=== PATIENT | male | born 1990 | race African-American/Black ===

== ENCOUNTER 2018-12-15 15:26 | Emergency (ER) | payer BC ==
--- NOTE | 2018-12-15 15:35 | ER Report ---
History and Physical Time Seen By MD: 15:35 HPI/ROS CHIEF COMPLAINT: Sore throat HISTORY OF PRESENT ILLNESS: 28-year-old male patient presents to emergency room with complaint of sore throat. Patient states that he has been having sore throat for the last 3 days. He denies having any fevers, but he does state that he will get warm and chilled. Patient states he has taken some ibuprofen for this, one day ago. He states that he is eating and drinking, but states that he does have a difficult time that due to the pain. He denies any nausea, vomiting or diarrhea. Patient states he has had a very mild headache. Patient is concerned that he may have strep throat. 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 Reviewed Nurses Notes: Yes Constitutional Vital Sign - Last 24 Hours 12/15/18 12/15/18 15:30 16:41 Temp 99.5 Pulse 90 85 Resp 16 14 B/P (MAP) 142/90 138/88 (105) Pulse Ox 90 93 O2 Delivery Room Air Room Air Physical Exam General appearance: Alert no distress. Respiratory: Chest is non tender, lungs are clear to auscultation. Cardiac: Regular rate and rhythm. Abdomen: Abdomen is soft nontender, bowel sounds are active in all 4 quadrants. ENT: Patient has bilateral tonsillar exudate, tonsillar hypertrophy and erythema. DIFFERENTIAL DIAGNOSIS: After history and physical exam differential diagnosis was considered for strep, mono, viral pharyngitis Medical Decision Making Data Points Laboratory Hematology Test 12/15/18 15:35 Group A Streptococcus (PCR) Negative (NEGATIVE) Chemistry Test 12/15/18 15:35 Group A Streptococcus (PCR) Negative (NEGATIVE) ED Course/Re-evaluation ED Course Patient is admitted and examined, history and physical were obtained. Differential diagnoses were considered. On examination lungs are clear, heart is regular, abdomen is soft and nontender. A strep screen was done which was negative. I discussed the findings with the patient. We will go ahead and treat him with antibiotics, if there's no improvement in the next 4 days he's returned to the emergency room or follow-up with his primary care provider for a Monospot. We'll go ahead and treat him with thoracic mouthwash to help with throat pain. Patient verbalized understanding and agreement with plan. Decision to Disposition Date: December 15, 2018 Decision to Disposition Time: 16:33 Depart Departure Latest Vital Signs Vital Signs Date Time Temp Pulse Resp B/P (MAP) Pulse Ox O2 Delivery O2 Flow Rate FiO2 12/15/18 16:41 85 14 138/88 (105) 93 Room Air 12/15/18 15:30 99.5 Impression: Primary Impression: Pharyngitis Condition: Improved Disposition: HOME OR SELF-CARE New Scripts Cephalexin 500 Mg Tab (KEFLEX 500 MG TAB) 500 Mg Tablet 500 MG PO Q6H, #28 TAB Prov: HENRRY DUQUE 12/15/18 Patient Instructions: Pharyngitis (ED) Additional Instructions: Increase fluid intake. Get plenty of rest. Take medication as prescribed. Follow up in 4 days if there is no improvement. We will call if the culture grows anything that we have to change treatment for. Return to the ER if condition worsens. Problem Qualifiers Primary Impression: Pharyngitis Pharyngitis/tonsillitis etiology: unspecified etiology Qualified Codes: J02.9 - Acute pharyngitis, unspecified HENRRY DUQUE December 15, 2018 15:35
[2018-12-15] MEDS ORDERED: CEPH500T7 PO (16:34)
[2018-12-15 16:41] VITALS: BP 138/88
== END 2018-12-15 16:42 | disposition home or self-care (01) ==
LOC: ER 15:40
DX: J02.9 Acute pharyngitis, unspecified (principal)
CPT/HCPCS: 87653; 99282

== ENCOUNTER 2018-12-15 18:12 | Emergency (ER) | payer BC ==
[2018-12-15] MEDS ORDERED: NS(*) 0.9% 1000 ML BAG 1,000 ML IV ONE ×2 (18:21→18:55)
[2018-12-15] MEDS ORDERED: ACETAMINOPHEN 325 MG TAB PO ONE (18:25)
[2018-12-15] MEDS ORDERED: ONDANSETRON 4 MG/2 ML VIAL IVP ONE (18:25)
--- NOTE | 2018-12-15 18:25 | ER Report ---
History and Physical Time Seen By MD: 18:23 Hx. of Stated Complaint: PT "UNCONSCIOUS AT [facility]". RECENTLY SEEN IN ED. PT A&O X4 HPI/ROS CHIEF COMPLAINT: Altered mental status, fever HISTORY OF PRESENT ILLNESS: 28-year-old male brought in by EMS from [facility] where he collapsed on as bench complaining of feeling hot and weak. The patient was seen in the ER several hours ago with fever and sore throat for several days . A rapid strep was performed which was negative, but patient was treated with antibiotics. She notes headache, neck pain, body aches, back pain. Patient states this feels like when he had mono when he was younger. REVIEW OF SYSTEMS: Respiratory: No cough, no dyspnea. Cardiovascular: No chest pain, no palpitations. Gastrointestinal: No vomiting, no abdominal pain. Musculoskeletal: No back pain. 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 12/15/18 Reviewed Nurses Notes: Yes Old Medical Records Reviewed: Yes Constitutional Vital Sign - Last 24 Hours 12/15/18 12/15/18 12/15/18 12/15/18 18:12 18:15 18:30 18:45 Temp 99.9 Pulse 72 75 75 78 Resp 15 16 26 16 B/P (MAP) 143/94 132/81 (98) Pulse Ox 92 93 86 93 O2 Delivery Room Air 12/15/18 12/15/18 12/15/18 12/15/18 18:50 19:05 19:20 19:30 Pulse 77 89 86 Resp 9 19 16 B/P (MAP) 146/84 (104) Pulse Ox 92 90 93 Physical Exam Vital signs stable, low-grade fever 99.5, pulse ox normal General Appearance: The patient is alert, has no immediate need for airway protection and no current signs of toxicity. Patient appears very fatigued, lethargic and tired. He is very slow to respond with whispered speech. He seems to be in distress HEENT: Pupils equal and round no injection. No injection, no mattering, TMs normal, oropharynx with moderate erythema, no exudate Respiratory: Chest is non tender, lungs are clear to auscultation. No wheezing or rails Cardiac: regular rate and rhythm, no murmur Gastrointestinal: Abdomen is soft and non tender, no masses, bowel sounds normal. Musculoskeletal: Neck: Neck is supple and non tender. No meningismus, no lymphadenopathy Extremities have full range of motion and are non tender. Skin: No rashes or lesions. DIFFERENTIAL DIAGNOSIS: After history and physical exam differential diagnosis was considered for adult fever including but not limited to viral syndromes including influenza, urinary tract infection, pneumonia and sepsis. Additionall y,altered mental status including but not limited to hypoglycemia, infectious process, electrolyte abnormality, head injury and intoxicants. Medical Decision Making Data Points Result Diagram: 12/15/18 1810 12/15/18 181 Laboratory Hematology Test 12/15/18 18:10 12/15/18 18:25 12/15/18 19:10 Red Blood Count 5.18 M/uL (4.00-5.60) Mean Corpuscular Volume 84.5 fL (80.0-96.0) Mean Corpuscular Hemoglobin 29.4 pg (26.0-33.0) Mean Corpuscular Hemoglobin Concent 34.8 g/dL (32.0-36.0) Red Cell Distribution Width 13.5 % (11.5-14.5) Mean Platelet Volume 8.1 fL (7.2-11.1) Neutrophils (%) (Auto) 82.8 % (39.4-72.5) Lymphocytes (%) (Auto) 8.0 % (17.6-49.6) Monocytes (%) (Auto) 8.6 % (4.1-12.4) Eosinophils (%) (Auto) 0.3 % (0.4-6.7) Basophils (%) (Auto) 0.3 % (0.3-1.4) Nucleated RBC Relative Count (auto) 0.0 /100WBC Neutrophils # (Auto) 8.7 K/uL (2.0-7.4) Lymphocytes # (Auto) 0.8 K/uL (1.3-3.6) Monocytes # (Auto) 0.9 K/uL (0.3-1.0) Eosinophils # (Auto) 0.0 K/uL (0.0-0.5) Basophils # (Auto) 0.0 K/uL (0.0-0.1) Nucleated RBC Absolute Count (auto) 0.00 K/uL Erythrocyte Sedimentation Rate 34 mm/HOUR (0-15) Sodium Level 138 mmol/L (137-145) Potassium Level 3.3 mmol/L (3.5-5.0) Chloride Level 105 mmol/L (98-107) Carbon Dioxide Level 25 mmol/L (22-30) Blood Urea Nitrogen 11 mg/dl (9-21) Creatinine 1.00 mg/dl (0.66-1.25) Glomerular Filtration Rate Calc > 60.0 Random Glucose 103 mg/dl (75-110) Calcium Level 9.2 mg/dl (8.4-10.2) Total Bilirubin 0.9 mg/dl (0.2-1.3) Aspartate Amino Transf (AST/SGOT) 29 U/L (0-35) Alanine Aminotransferase (ALT/SGPT) 22 U/L (0-56) Alkaline Phosphatase 82 U/L (0-126) C-Reactive Protein 3.8 mg/dl (<1.0) Total Protein 7.8 g/dl (6.3-8.2) Albumin 4.0 g/dl (3.5-5.0) Monoscreen Negative (NEGATIVE) Influenza Virus Type A (PCR) Negative (NEGATIVE) Influenza Virus Type B (PCR) Negative (NEGATIVE) Lactate 1.1 mmol/L (0.7-2.1) Urine Color Yellow Urine Clarity Clear Urine pH 5.0 pH (4.8-9.5) Urine Specific [place] 1.032 Urine Protein Negative mg/dL (NEGATIVE) Urine Glucose (UA) Negative mg/dL (NEGATIVE) Urine Ketones 20 mg/dL (NEGATIVE) Urine Blood Negative (NEGATIVE) Urine Nitrite Negative (NEGATIVE) Urine Bilirubin Negative (NEGATIVE) Urine Urobilinogen 4.0 mg/dL (0.2-1.9) Urine Leukocyte Esterase Negative (NEGATIVE) Urine RBC 1 /HPF (0-2/HPF) Urine WBC 2 /HPF (0-5/HPF) Urine Squamous Epithelial Cells None /LPF (</=FEW) Urine Bacteria Negative /HPF (NONE-FEW) Urine Mucus Few /HPF (NONE-FEW) Urine Opiates Screen Negative Urine Barbiturates Screen Negative Ur Tricyclic Antidepressants Screen Negative Urine Phencyclidine Screen Negative Urine Amphetamines Screen Negative Urine Benzodiazepines Screen Negative Urine Cocaine Screen Negative Urine Cannabinoids Screen Positive Chemistry Test 12/15/18 18:10 12/15/18 18:25 12/15/18 19:10 White Blood Count 10.5 k/uL (4.5-11.0) Red Blood Count 5.18 M/uL (4.00-5.60) Hemoglobin 15.2 g/dL (14.0-18.0) Hematocrit 43.8 % (42.0-52.0) Mean Corpuscular Volume 84.5 fL (80.0-96.0) Mean Corpuscular Hemoglobin 29.4 pg (26.0-33.0) Mean Corpuscular Hemoglobin Concent 34.8 g/dL (32.0-36.0) Red Cell Distribution Width 13.5 % (11.5-14.5) Platelet Count 166 K/uL (150-450) Mean Platelet Volume 8.1 fL (7.2-11.1) Neutrophils (%) (Auto) 82.8 % (39.4-72.5) Lymphocytes (%) (Auto) 8.0 % (17.6-49.6) Monocytes (%) (Auto) 8.6 % (4.1-12.4) Eosinophils (%) (Auto) 0.3 % (0.4-6.7) Basophils (%) (Auto) 0.3 % (0.3-1.4) Nucleated RBC Relative Count (auto) 0.0 /100WBC Neutrophils # (Auto) 8.7 K/uL (2.0-7.4) Lymphocytes # (Auto) 0.8 K/uL (1.3-3.6) Monocytes # (Auto) 0.9 K/uL (0.3-1.0) Eosinophils # (Auto) 0.0 K/uL (0.0-0.5) Basophils # (Auto) 0.0 K/uL (0.0-0.1) Nucleated RBC Absolute Count (auto) 0.00 K/uL Erythrocyte Sedimentation Rate 34 mm/HOUR (0-15) Glomerular Filtration Rate Calc > 60.0 Calcium Level 9.2 mg/dl (8.4-10.2) Total Bilirubin 0.9 mg/dl (0.2-1.3) Aspartate Amino Transf (AST/SGOT) 29 U/L (0-35) Alanine Aminotransferase (ALT/SGPT) 22 U/L (0-56) Alkaline Phosphatase 82 U/L (0-126) C-Reactive Protein 3.8 mg/dl (<1.0) Total Protein 7.8 g/dl (6.3-8.2) Albumin 4.0 g/dl (3.5-5.0) Monoscreen Negative (NEGATIVE) Influenza Virus Type A (PCR) Negative (NEGATIVE) Influenza Virus Type B (PCR) Negative (NEGATIVE) Lactate 1.1 mmol/L (0.7-2.1) Urine Color Yellow Urine Clarity Clear Urine pH 5.0 pH (4.8-9.5) Urine Specific [place] 1.032 Urine Protein Negative mg/dL (NEGATIVE) Urine Glucose (UA) Negative mg/dL (NEGATIVE) Urine Ketones 20 mg/dL (NEGATIVE) Urine Blood Negative (NEGATIVE) Urine Nitrite Negative (NEGATIVE) Urine Bilirubin Negative (NEGATIVE) Urine Urobilinogen 4.0 mg/dL (0.2-1.9) Urine Leukocyte Esterase Negative (NEGATIVE) Urine RBC 1 /HPF (0-2/HPF) Urine WBC 2 /HPF (0-5/HPF) Urine Squamous Epithelial Cells None /LPF (</=FEW) Urine Bacteria Negative /HPF (NONE-FEW) Urine Mucus Few /HPF (NONE-FEW) Urine Opiates Screen Negative Urine Barbiturates Screen Negative Ur Tricyclic Antidepressants Screen Negative Urine Phencyclidine Screen Negative Urine Amphetamines Screen Negative Urine Benzodiazepines Screen Negative Urine Cocaine Screen Negative Urine Cannabinoids Screen Positive Toxicology Test 12/15/18 19:10 Urine Opiates Screen Negative Urine Barbiturates Screen Negative Ur Tricyclic Antidepressants Screen Negative Urine Phencyclidine Screen Negative Urine Amphetamines Screen Negative Urine Benzodiazepines Screen Negative Urine Cocaine Screen Negative Urine Cannabinoids Screen Positive Urinalysis Test 12/15/18 19:10 Urine Color Yellow Urine Clarity Clear Urine pH 5.0 pH (4.8-9.5) Urine Specific [place] 1.032 Urine Protein Negative mg/dL (NEGATIVE) Urine Glucose (UA) Negative mg/dL (NEGATIVE) Urine Ketones 20 mg/dL (NEGATIVE) Urine Blood Negative (NEGATIVE) Urine Nitrite Negative (NEGATIVE) Urine Bilirubin Negative (NEGATIVE) Urine Urobilinogen 4.0 mg/dL (0.2-1.9) Urine Leukocyte Esterase Negative (NEGATIVE) Urine RBC 1 /HPF (0-2/HPF) Urine WBC 2 /HPF (0-5/HPF) Urine Squamous Epithelial Cells None /LPF (</=FEW) Urine Bacteria Negative /HPF (NONE-FEW) Urine Mucus Few /HPF (NONE-FEW) Microbiology Microbiology Date/Time Source Procedure Growth Status 12/15/18 18:38 Blood Peripheral Draw Blood Culture - Preliminary NO GROWTH AFTER 1 DAY, REINCUBATED Resulted 12/15/18 18:25 Blood Peripheral Draw Blood Culture - Preliminary NO GROWTH AFTER 1 DAY, REINCUBATED Resulted EKG/Imaging Imaging X-ray: Two-view chest x-ray obtained. I viewed the images myself on the PACS system. My interpretation of the images is: No infiltrate, no effusion, normal mediastinum. The radiologist interpretation had no clinically significant variation from this interpretation. ED Course/Re-evaluation Clinical Indication for ER IV: Hydration, IV Access ED Course Patient was admitted to an examination room by EMS. H&P was done. Patient with altered mental status, fever and recent illness. He subsequently passed out at [facility] while getting his prescription for Keflex filled. EMS checked a finger stick glucose of 77. Patient was brought in by EMS. Responding to painful stimuli. He did have some verbal response. On arrival, patient's aggressively hydrated with 2 L of normal saline. Diagnostic studies are sent off including blood cultures, mono flu and urinalysis. Patient rapidly responded to rehydration. The only finding that was of significance was elevated sedimentation rate of 34 and a CRP of 3.8. A rapid strep performed on his previous visit is negative. Patient is lactate was only 1.1. Suggesting no signs of sepsis. Discharged home on conservative treatment. He is advised to continue the Keflex scribed. Patient advised to alternate ibuprofen and Tylenol every 4 hours and aggressively keep himself hydrated. Patient advised to follow-up with primary care if unimproved in 3-5 days. Decision to Disposition Date: December 15, 2018 Decision to Disposition Time: 19:16 Depart Departure Latest Vital Signs Vital Signs Date Time Temp Pulse Resp B/P (MAP) Pulse Ox O2 Delivery O2 Flow Rate FiO2 12/15/18 19:30 146/84 (104) 12/15/18 19:20 86 16 93 12/15/18 18:12 99.9 Room Air Core Temperature (Celsius): 37.50 Impression: Primary Impression: Vasovagal syncope Additional Impressions: Dehydration Acute pharyngitis Condition: Improved Disposition: HOME OR SELF-CARE Patient Instructions: Pharyngitis (ED) Additional Instructions: Alternate ibuprofen 600 mg and Tylenol 650 mg every 4 hours Take plenty of fluids to stay well hydrated Follow-up with primary care if unimproved in 3-5 days Problem Qualifiers Additional Impressions: Acute pharyngitis Pharyngitis/tonsillitis etiology: unspecified etiology Qualified Codes: J02.9 - Acute pharyngitis, unspecified MARI NELSON DO December 15, 2018 18:25
[2018-12-15 18:39] LABS: PLATELET COUNT, AUTOMATED 166 K/uL (150-450)
[2018-12-15] MEDS ORDERED: KETOROLAC 30 MG/ML VIAL IVP ONE (19:10)
--- NOTE | 2018-12-15 19:26 | RADIOLOGY IMAGING REPORT ---
FACILITY: [facility] [place] PATIENT NAME: Scot Richardson : 1990 MR: [id number] V: [id number] EXAM DATE: ORDERING PHYSICIAN: MARI NELSON TECHNOLOGIST: Location: [facility] Patient: Scot Richardson : 1990 Visit/Account:[id number] Date of Sevice: 12/15/2018 EXAMINATION: PA and Lateral Chest 12/15/2018 6:21 PM HISTORY: Fever. Sore throat. COMPARISON: None FINDINGS: Cardiomediastinal contours: Normal Lungs and pleura: Normal Bones/soft tissues: Normal IMPRESSION: No acute cardiopulmonary abnormality. Report Dictated By: Chente Hale MD at 12/15/2018 7:22 PM Report E-Signed By: Chente Hale MD at 12/15/2018 7:23 PM WSN:[id number]
[2018-12-15 19:30] VITALS: BP 146/84
== END 2018-12-15 19:40 | disposition home or self-care (01) ==
LOC: ER 18:22
DX: R55 Syncope and collapse (principal); E86.0 Dehydration; J02.9 Acute pharyngitis, unspecified
CPT/HCPCS: 36415; 71046; 80305; 81001; 83605; 85025; 85651; 86140; 86308; 87040; 87502; 96361; 96374; 96375; 99284; J1885; J2405; J7030; 82040; 82247; 82310; 82374; 82435; 82565; 82947; 84075; 84132; 84155; 84295; 84450; 84460; 84520

== ENCOUNTER → 2018-12-15 | Outpatient (CLI) | payer BC ==
[~2018-12-15] MED LIST: CEPH500T7 PO
== END ==
LOC: AMB 17:52
PROVIDERS: ATTEND Nurse Practitioner
DX: R50.9 Fever, unspecified (principal); R41.82 Altered mental status, unspecified; R53.1 Weakness
CPT/HCPCS: A0425; A0427

== ENCOUNTER 2018-12-26 17:49 | Emergency (ER) | payer BC ==
--- NOTE | 2018-12-26 19:04 | ER Report ---
History and Physical Time Seen By MD: 19:02 Hx. of Stated Complaint: HERE 1 WEEK AGO FOR POSS STREP. SEND HOME ON ABX. ABX ENDED 2 DDAYS AGO. DARK SPOTS AND WHITE SPOTS NOTED ON TONSILS HPI/ROS CHIEF COMPLAINT: Sore throat HISTORY OF PRESENT ILLNESS: This is a 28-year-old male who presents to emergency department for a sore throat. The patient was seen and evaluated in the emergency department about 10 days ago for sore throat and a near-syncope episode. He was sent home with a prescription for Keflex, finished the and buttocks 2 days ago, states the antibiotics helped his sore throat, was feeling better, then yesterday began to have a little bit of throat irritation on the left side, today has increased discomfort in the throat, primarily on the left side, noted to have some exudates, painful to swallow. No fevers however he's had chills. Bit of nausea this afternoon, no vomiting. No diarrhea. No chest pain or shortness of breath. No rashes. REVIEW OF SYSTEMS: ENT: As above. Respiratory: No cough, no dyspnea. Cardiovascular: No chest pain, no palpitations. Gastrointestinal: No vomiting, no abdominal pain. Musculoskeletal: No back pain. Allergies: Coded Allergies: No Known Drug Allergies (Unverified , 12/15/18) Home Meds Discontinued Scripts Cephalexin 500 Mg Tab (KEFLEX 500 MG TAB) 500 Mg Tablet, 500 MG PO Q6H, #28 TAB Prov:HENRRY DUQUE INDER 12/15/18 Past Medical/Surgical History The patient has no significant past medical or surgical history. Reviewed Nurses Notes: Yes Constitutional Vital Sign - Last 24 Hours 12/26/18 12/26/18 12/26/18 12/26/18 18:19 18:24 18:24 18:30 Temp 99.9 Pulse ??? 77 Resp 20 B/P (MAP) 125/80 (95) 125/80 121/83 (96) Pulse Ox 95 O2 Delivery Room Air 12/26/18 12/26/18 12/26/18 12/26/18 18:34 18:49 19:00 19:04 Pulse 73 71 80 B/P (MAP) 122/72 (89) Pulse Ox 91 90 12/26/18 12/26/18 12/26/18 12/26/18 19:19 19:30 19:34 19:39 Pulse 79 73 75 B/P (MAP) 131/83 (99) Pulse Ox 93 90 91 12/26/18 12/26/18 12/26/18 12/26/18 19:54 20:09 20:24 20:30 Pulse 86 84 83 B/P (MAP) 123/75 (91) Pulse Ox 91 91 90 12/26/18 20:39 Pulse 79 Pulse Ox 91 Physical Exam General Appearance: The patient is alert, has no immediate need for airway protection and no current signs of toxicity. Eyes: Pupils equal and round no injection. ENT: TMs pearly pineda, landmarks noted, no erythema or injection, bilaterally. No nasal discharge. Erythema to the posterior oropharynx, tonsillar hypertrophy bilaterally, left greater than right, exudates noted bilaterally. No petechial hemorrhages. Respiratory: Chest is non tender, lungs are clear to auscultation. Cardiac: regular rate and rhythm. Gastrointestinal: Abdomen is soft and non tender, no masses, bowel sounds normal. Musculoskeletal: Neck: Bilateral anterior cervical chain lymphadenopathy, left greater than right. Extremities have full range of motion and are non tender. Skin: No rashes or lesions. DIFFERENTIAL DIAGNOSIS: After history and physical exam differential diagnosis was considered for viral pharyngitis, bacterial pharyngitis, Jorge's angina, sinusitis, viral syndrome. Medical Decision Making Data Points Laboratory Hematology Test 12/26/18 19:18 12/26/18 19:25 Group A Streptococcus (PCR) Negative (NEGATIVE) Monoscreen Negative (NEGATIVE) Chemistry Test 12/26/18 19:18 12/26/18 19:25 Group A Streptococcus (PCR) Negative (NEGATIVE) Monoscreen Negative (NEGATIVE) ED Course/Re-evaluation ED Course Patient was admitted to room. A history and physical obtained. Differential diagnoses were considered. Negative Monospot, negative repeat strep, culture was sent. Patient was given Magic mouthwash and a one-time injection of Bicillin. Patient was instructed to follow-up with his primary care provider early next week for reevaluation, return here for any concerns or worsening symptoms. Patient expressed understanding was discharged home. Decision to Disposition Date: December 26, 2018 Decision to Disposition Time: 21:20 Depart Departure Latest Vital Signs Vital Signs Date Time Temp Pulse Resp B/P (MAP) Pulse Ox O2 Delivery O2 Flow Rate FiO2 12/26/18 20:39 79 91 12/26/18 20:30 123/75 (91) 12/26/18 18:24 99.9 20 Room Air Core Temperature (Celsius): 37.50 Impression: Primary Impression: Pharyngitis Condition: Improved Disposition: HOME OR SELF-CARE Patient Instructions: Pharyngitis (ED) Additional Instructions: We did send a strep culture out. Although your test was negative today, you were treated with a one time dose of penicillin. Take Ibuprofen or Tylenol as needed for pain. Use the magic mouthwash for throat pain. Follow up with your PCP in 2-5 days for reevaluation. Return to the ED for any other concerns or worsening symptoms. Problem Qualifiers Primary Impression: Pharyngitis Pharyngitis/tonsillitis etiology: unspecified etiology Qualified Codes: J02.9 - Acute pharyngitis, unspecified JULIA GONZALES OCCUPATIONAL [employer]ER-BC December 26, 2018 19:04
[2018-12-26] MEDS ORDERED: ONDANSETRON 4 MG ODT TABDP SL ONE (19:15)
[2018-12-26 20:30] VITALS: BP 123/75
[2018-12-26] MEDS ORDERED: MAGIC MOUTHWASH 90 ML BTL PO ONE (20:50)
[2018-12-26] MEDS ORDERED: PENICILLIN G BENZATHIN IM SUSP IM ONLY ONE (20:50)
[2018-12-26] MEDS ORDERED: LIDOCAINE 2% VISC SLN 15ML UDC ONE (21:14)
[2018-12-26] MEDS ORDERED: MAG HYD/AL HYD/SIMETH 30ML UDC ONE (21:14)
== END 2018-12-26 21:33 | disposition home or self-care (01) ==
LOC: ER 18:38
DX: J02.9 Acute pharyngitis, unspecified (principal)
CPT/HCPCS: 36415; 86308; 87070; 87653; 99283; J0561; S0119

== ENCOUNTER 2018-12-27 11:57 | Observation (INO) | payer BC ==
[~2018-12-27] VITALS: Ht 200.7 cm; Wt 102.1 kg
--- NOTE | 2018-12-27 12:01 | ER Report ---
History and Physical Time Seen By MD: 12:01 HPI/ROS CHIEF COMPLAINT: Continued throat swelling HISTORY OF PRESENT ILLNESS: This is a 28-year-old male who presents to the emergency department for recurrent throat swelling. Patient was seen 3 times in the emergency department within the last 15 days, was given a course of Keflex, was seen yesterday, with minimal throat swelling and exudates, negative strep test negative mono, was given a one-time Bicillin injection, Magic mouthwash, woke up in the middle night with severe drooling and swelling of the throat, went to urgent care today states that voices worse, pain is worse. He denies chest pain or shortness of breath. No nausea or vomiting. Some chills no fevers. No rashes. REVIEW OF SYSTEMS: Constitutional: As above. Eyes: No discharge. ENT: As above. Cardiovascular: No chest pain, no palpitations. Respiratory: No cough, no shortness of breath. Gastrointestinal: No abdominal pain, no vomiting. Genitourinary: No hematuria. Musculoskeletal: No back pain. Skin: No rashes. Neurological: No headache. Allergies: Coded Allergies: No Known Drug Allergies (Unverified , 12/27/18) Home Meds Discontinued Scripts Cephalexin 500 Mg Tab (KEFLEX 500 MG TAB) 500 Mg Tablet, 500 MG PO Q6H, #28 TAB Prov:HENRRY DUQUE 12/15/18 Past Medical/Surgical History The patient has no significant past medical or surgical history. Reviewed Nurses Notes: Yes Constitutional Vital Sign - Last 24 Hours 12/27/18 12/27/18 12/27/18 12/27/18 12:00 12:01 12:15 12:30 Temp 99.4 Pulse 86 85 80 87 Resp 12 B/P (MAP) 136/93 (107) 136/93 130/92 (105) Pulse Ox 92 92 90 88 O2 Delivery Room Air 12/27/18 12/27/18 12/27/18 12/27/18 13:00 13:15 13:30 13:45 Pulse 85 88 83 92 B/P (MAP) 132/87 (102) 135/89 (104) Pulse Ox 88 90 90 92 12/27/18 12/27/18 12/27/18 12/27/18 14:00 14:15 14:30 14:45 Pulse 97 69 86 83 B/P (MAP) 132/86 (101) 131/90 (104) Pulse Ox 87 91 83 91 12/27/18 12/27/18 12/27/18 12/27/18 15:00 15:15 15:30 15:45 Pulse 91 89 81 B/P (MAP) 130/85 (100) 127/85 (99) Pulse Ox 93 92 92 94 12/27/18 16:00 Pulse 75 B/P (MAP) 126/90 (102) Pulse Ox 90 Physical Exam General Appearance: The patient is alert, has no immediate need for airway protection and no signs of toxicity. Eyes: Pupils equal and round no pallor or injection. ENT, Mouth: Mucous membranes are moist. Increased tonsillar hypertrophy bilaterally, left greater than right, significant amount of exudate bilateral tonsils, left greater than right, no petechial hemorrhages, erythema to the posterior oropharynx and the tonsils. Strong odor from the patient's mouth. Respiratory: There are no retractions, lungs are clear to auscultation. Cardiovascular: Regular rate and rhythm. Gastrointestinal: Abdomen is soft and non tender, no masses, bowel sounds normal. Neurological: Alert and oriented 4. Moving all extremities. Following all commands. No focal neuro deficits. Skin: Warm and dry, no rashes. Musculoskeletal: Anterior cervical chain lymphadenopathy bilaterally, left greater than right. Extremities are nontender, nonswollen and have full range of motion. DIFFERENTIAL DIAGNOSIS: After history and physical exam differential diagnosis was considered for his angina, peritonsillar abscess, strep pharyngitis, Medical Decision Making Data Points Result Diagram: 12/27/18 1210 12/27/18 1210 Laboratory Hematology Test 12/27/18 12:10 Red Blood Count 5.52 M/uL (4.00-5.60) Mean Corpuscular Volume 84.3 fL (80.0-96.0) Mean Corpuscular Hemoglobin 29.1 pg (26.0-33.0) Mean Corpuscular Hemoglobin Concent 34.5 g/dL (32.0-36.0) Red Cell Distribution Width 13.7 % (11.5-14.5) Mean Platelet Volume 7.6 fL (7.2-11.1) Neutrophils (%) (Auto) 90.4 % (39.4-72.5) Lymphocytes (%) (Auto) 4.1 % (17.6-49.6) Monocytes (%) (Auto) 4.9 % (4.1-12.4) Eosinophils (%) (Auto) 0.1 % (0.4-6.7) Basophils (%) (Auto) 0.5 % (0.3-1.4) Nucleated RBC Relative Count (auto) 0.0 /100WBC Neutrophils # (Auto) 17.9 K/uL (2.0-7.4) Lymphocytes # (Auto) 0.8 K/uL (1.3-3.6) Monocytes # (Auto) 1.0 K/uL (0.3-1.0) Eosinophils # (Auto) 0.0 K/uL (0.0-0.5) Basophils # (Auto) 0.1 K/uL (0.0-0.1) Nucleated RBC Absolute Count (auto) 0.00 K/uL Sodium Level 138 mmol/L (137-145) Potassium Level 4.3 mmol/L (3.5-5.0) Chloride Level 102 mmol/L (98-107) Carbon Dioxide Level 24 mmol/L (22-30) Blood Urea Nitrogen 12 mg/dl (9-21) Creatinine 1.10 mg/dl (0.66-1.25) Glomerular Filtration Rate Calc > 60.0 Random Glucose 107 mg/dl (75-110) Lactate 1.1 mmol/L (0.7-2.1) Calcium Level 9.9 mg/dl (8.4-10.2) Total Bilirubin 1.2 mg/dl (0.2-1.3) Aspartate Amino Transf (AST/SGOT) 20 U/L (0-35) Alanine Aminotransferase (ALT/SGPT) 24 U/L (0-56) Alkaline Phosphatase 91 U/L (0-126) Total Protein 8.3 g/dl (6.3-8.2) Albumin 4.4 g/dl (3.5-5.0) Chemistry Test 12/27/18 12:10 White Blood Count 19.8 k/uL (4.5-11.0) Red Blood Count 5.52 M/uL (4.00-5.60) Hemoglobin 16.1 g/dL (14.0-18.0) Hematocrit 46.5 % (42.0-52.0) Mean Corpuscular Volume 84.3 fL (80.0-96.0) Mean Corpuscular Hemoglobin 29.1 pg (26.0-33.0) Mean Corpuscular Hemoglobin Concent 34.5 g/dL (32.0-36.0) Red Cell Distribution Width 13.7 % (11.5-14.5) Platelet Count 239 K/uL (150-450) Mean Platelet Volume 7.6 fL (7.2-11.1) Neutrophils (%) (Auto) 90.4 % (39.4-72.5) Lymphocytes (%) (Auto) 4.1 % (17.6-49.6) Monocytes (%) (Auto) 4.9 % (4.1-12.4) Eosinophils (%) (Auto) 0.1 % (0.4-6.7) Basophils (%) (Auto) 0.5 % (0.3-1.4) Nucleated RBC Relative Count (auto) 0.0 /100WBC Neutrophils # (Auto) 17.9 K/uL (2.0-7.4) Lymphocytes # (Auto) 0.8 K/uL (1.3-3.6) Monocytes # (Auto) 1.0 K/uL (0.3-1.0) Eosinophils # (Auto) 0.0 K/uL (0.0-0.5) Basophils # (Auto) 0.1 K/uL (0.0-0.1) Nucleated RBC Absolute Count (auto) 0.00 K/uL Glomerular Filtration Rate Calc > 60.0 Lactate 1.1 mmol/L (0.7-2.1) Calcium Level 9.9 mg/dl (8.4-10.2) Total Bilirubin 1.2 mg/dl (0.2-1.3) Aspartate Amino Transf (AST/SGOT) 20 U/L (0-35) Alanine Aminotransferase (ALT/SGPT) 24 U/L (0-56) Alkaline Phosphatase 91 U/L (0-126) Total Protein 8.3 g/dl (6.3-8.2) Albumin 4.4 g/dl (3.5-5.0) EKG/Imaging Imaging PATIENT NAME: Scot Richardson : 1990 MR: [id number] V: [id number] EXAM DATE: ORDERING PHYSICIAN: JULIA GONZALES TECHNOLOGIST: Location: [facility] Patient: Scot Richardson : 1990 Visit/Account:[id number] Date of Sevice: 12/27/2018 EXAMINATION: CT neck with IV contrast HISTORY: Recurrent tonsillar swelling. Drooling. TECHNIQUE: Axial CT images of the neck were obtained with IV contrast, with coronal and sagittal 2D reconstructed images. One of the following dose optimization techniques was utilized in the performance of this exam: Automated exposure control; adjustment of the mA and/or kV according to the patient's size; or use of an iterative reconstruction technique. Specific details can be referenced in the facility's radiology CT exam operational policy. Contrast: 75 mL of IV Isovue-370. COMPARISON: None. FINDINGS: There is moderate enlargement of the bilateral palatine tonsils, greater on the left, which results in moderate narrowing of the oropharynx. There is mildly heterogeneous enhancement of the left palatine tonsil without evidence of any well-defined abscess. There is some edema tracking along the left parapharyngeal space which may indicate peritonsillar cellulitis/phlegmon, but again with no discrete well-defined abscess at this time. Additional moderate symmetric enlargement of the bilateral adenoids. The hypopharynx is patent and normal in caliber. Normal CT appearance of the epiglottis. No retropharyngeal abscess or fluid. No soft tissue gas along the neck. Mildly enlarged cervical lymph nodes along the neck are likely reactive. Largest nodes measure 1.8 x 1.5 cm along the left level II neck and 1.9 x 1.4 cm along the right level II neck. The parotid and submandibular glands are unremarkable. Normal CT appearance of the thyroid. The visualized lung apices are clear. Visualized osseous structures appear intact. Normal alignment along the cervical spine. The partially visualized paranasal sinuses are unopacified. The mastoid air cells and middle ear cavities are unopacified. IMPRESSION: 1. Moderate enlargement of the bilateral palatine tonsils, greater on the left, with moderate narrowing of the oropharynx. 2. There is mildly heterogeneous enhancement of the left palatine tonsil without evidence of a discrete abscess. 3. Edema along the left parapharyngeal space may represent peritonsillar cellulitis/phlegmon, but again without any discrete abscess at this time. 4. Additional moderate enlargement of the bilateral adenoids. 5. Mildly enlarged bilateral cervical lymph nodes are likely reactive. Report Dictated By: Prakash Hyde MD at 12/27/2018 3:12 PM Report E-Signed By: Prakash Hyde MD at 12/27/2018 3:24 PM WSN:[id number] ED Course/Re-evaluation Clinical Indication for ER IV: Hydration, IV Access ED Course The patient was admitted to room. A history and physical were obtained. Differential diagnoses were considered. An IV was started. A CBC, CMP were obtained. A 1 L normal saline bolus was given. 10 mg IV Decadron. CBC showing white count of 20,000 with a left shift, platelets normal, chemistry unremarkable.CT of the neck showing moderate enlargement of bilateral palmar 19 tonsils greater on the left with moderate narrowing of the oropharynx. Mildly heterogeneous enhancement of the left town teen tonsil without evidence of abscess. Edema along the left. Pharyngeal space consistent with peritonsillar cellulitis. Patient was given 1 g of Rocephin. He was also given 800 mg by mouth ibuprofen, he tolerated the ibuprofen well. No acute respiratory distress or drooling while in the emergency department, he was able to speak in complete sentences however given the extent of the CT exam, his presentation today when compared to yesterday's exam I do feel IV antibiotics are warranted, I did speak with Dr. Brenda Matias, the hospitalist document controller, she is agreed to admit the patient to the hospitalist services for tonsillar cellulitis, patient was agreeable with this plan of care, we'll have ENT follow-up this week. 12/27/2018 3:50:21 pm I did speak with Dr. Brenda Matias, hospitalist on-call, we did discuss the case, she has accepted the patient in the hospitalist services. Decision to Disposition Date: December 27, 2018 Decision to Disposition Time: 15:50 Depart Departure Latest Vital Signs Vital Signs Date Time Temp Pulse Resp B/P (MAP) Pulse Ox O2 Delivery O2 Flow Rate FiO2 12/27/18 16:00 75 126/90 (102) 90 12/27/18 12:01 99.4 12 Room Air Core Temperature (Celsius): 37.50 Impression: Primary Impression: Peritonsillar cellulitis Additional Impression: Failure of outpatient treatment Condition: Improved Disposition: Admitted from ER New Scripts No Active Prescriptions or Reported Meds Problem Qualifiers JULIA GONZALES TOLL RELIEF OPERATOR-BC December 27, 2018 12:01
[2018-12-27] MEDS ORDERED: DEXAMETHASONE SOD PHOS 10MG/ML IVP ONE (12:05)
[2018-12-27] MEDS ORDERED: NS(*) 0.9% 1000 ML BAG 1,000 ML IV ONE (12:05)
[2018-12-27 12:25] LABS: PLATELET COUNT, AUTOMATED 239 K/uL (150-450)
[2018-12-27] MEDS ORDERED: IOPAMIDOL 76% 150 ML INFUS BTL 150 ML ONE (12:46)
[2018-12-27] MEDS ORDERED: cefTRIAXone(*) 1 GM VIAL 1 GM in NS(*) 0.9% 100 ML MINI-BAG 100 ML IVPB ONE (13:40)
[2018-12-27] MEDS ORDERED: cefTRIAXone 1 GM VIAL ONE (13:55)
[2018-12-27] MEDS ORDERED: cefTRIAXone 1 GM VIAL IVP ONE (14:00)
[2018-12-27] MEDS ORDERED: IBUPROFEN 800 MG TAB PO ONE (15:10)
--- NOTE | 2018-12-27 15:27 | RADIOLOGY IMAGING REPORT ---
FACILITY: [facility] PATIENT NAME: Scot Richardson : 1990 MR: [id number] V: [id number] EXAM DATE: ORDERING PHYSICIAN: JULIA GONZALES TECHNOLOGIST: Location: [facility] Patient: Scot Richardson : 1990 Visit/Account:[id number] Date of Sevice: 12/27/2018 EXAMINATION: CT neck with IV contrast HISTORY: Recurrent tonsillar swelling. Drooling. TECHNIQUE: Axial CT images of the neck were obtained with IV contrast, with coronal and sagittal 2D reconstructed images. One of the following dose optimization techniques was utilized in the performance of this exam: Autom ated exposure control; adjustment of the mA and/or kV according to the patient's size; or use of an i terative reconstruction technique. Specific details can be referenced in the facility's radiology C T exam operational policy. Contrast: 75 mL of IV Isovue-370. COMPARISON: None. FINDINGS: There is moderate enlargement of the bilateral palatine tonsils, greater on the left, which results i n moderate narrowing of the oropharynx. There is mildly heterogeneous enhancement of the left palati ne tonsil without evidence of any well-defined abscess. There is some edema tracking along the left parapharyngeal space which may indicate peritonsillar cellulitis/phlegmon, but again with no discrete well-defined abscess at this time. Additional moderate symmetric enlargement of the bilateral adenoids. The hypopharynx is patent and normal in caliber. Normal CT appearance of the epiglottis. No retroph aryngeal abscess or fluid. No soft tissue gas along the neck. Mildly enlarged cervical lymph nodes along the neck are likely reactive. Largest nodes measure 1.8 x 1.5 cm along the left level II neck and 1.9 x 1.4 cm along the right level II neck. The parotid and submandibular glands are unremarkable. Normal CT appearance of the thyroid. The visualized lung apices are clear. Visualized osseous structures appear intact. Normal alignment along the cervical spine. The partial ly visualized paranasal sinuses are unopacified. The mastoid air cells and middle ear cavities are u nopacified. IMPRESSION: 1. Moderate enlargement of the bilateral palatine tonsils, greater on the left, with moderate narrow ing of the oropharynx. 2. There is mildly heterogeneous enhancement of the left palatine tonsil without evidence of a discr ete abscess. 3. Edema along the left parapharyngeal space may represent peritonsillar cellulitis/phlegmon, but ag ain without any discrete abscess at this time. 4. Additional moderate enlargement of the bilateral adenoids. 5. Mildly enlarged bilateral cervical lymph nodes are likely reactive. Report Dictated By: Prakash Hyde MD at 12/27/2018 3:12 PM Report E-Signed By: Prakash Hyde MD at 12/27/2018 3:24 PM WSN:[id number]
[2018-12-27 16:41] VITALS: BP 156/79
[2018-12-27] MEDS ORDERED: INFLUENZA VIRUS VAC 0.5ML SYR IM ONLY ONE (17:20)
[2018-12-27] MEDS ORDERED: ACETAMINOPHEN 325 MG TAB PO PRN (17:20)
[2018-12-27] MEDS: NS(*) 0.9% 1000 ML BAG 1,000 ML IV PRN ×3 (17:22→23:37)
[2018-12-27] MEDS: AMPICILLIN/SULBACT (*) 3 GM VL 3 GM in NS(*) 0.9% 100 ML MINI-BAG 100 ML IVPB SCH ×2 (17:47→23:34)
--- NOTE | 2018-12-27 17:59 | History & Physical ---
History of Present Illness Chief Complaint Sore throat, difficulty swallowing. History of Present Illness The patient is a 28 year old male with no significant PMH who presents with sore throat, difficulty swallowing and trouble breathing for 2 days. The patient was seen in the ER in early December for pharyngitis. He was treated with a course of Ke flex and got better. Once he stopped the antibiotic, his symptoms rapidly returned. He was seen in the ER yesterday and given an injection of PCN. He states he could not sleep well last night because he was drooling and although he could breath, his airway felt constricted. Today he presented to the ER for recheck. His posterior pharyngeal swelling was worse. A CT of the soft tissue neck showed moderate enlargement of the bilateral palatine tonsils, greater on the left, with moderate narrowing of the oropharynx. There was mildly heterogeneous enhancement of the left palatine tonsil without evidence of a discrete abscess. Also noted was edema along the left parapharyngeal space which was felt to possibly represent peritonsillar cellulitis/phlegmon, but again without any discrete abscess. In the ER he was given a dose of IV dexamethasone and ceftriaxone. He was recommended for admission. History Problems: (1) History of wisdom tooth extraction Status: Resolved Other Past Medical Hx No significant PMH. 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 Hx Smoking: No Smoking Status: Never Smoker Caffeine Intake: Coffee Caffeine/Cups Per Day: Approx 3x/week Hx Alcohol Use: Yes Alcohol Use: Occassional Hx Substance Use Disorder: No History of IV Drug Use: No Review of Systems All Systems Reviewed/Normal: Yes, Except as Noted Neurological: Syncope (History of vasovagal syncope.) ENT: Sore Throat Cardiovascular: No Chest Pain Respiratory: No Shortness of Breath Gastrointestinal: No Nausea, No Vomiting Musculoskeletal: No Pain (Denies neck pain. ) Exam Vital Signs Vital Signs Date Time Temp Pulse Resp B/P (MAP) Pulse Ox O2 Delivery O2 Flow Rate FiO2 12/27/18 16:41 98.3 71 16 156/79 (104) 96 Room Air General Appearance: Alert, Awake, No Acute Distress Neuro: No Gross deficits Eyes: PERRLA ENT: Other (Bilateral tonsillar enlargement, L > R with exudates ) Neck: Other (No pain with movement including extension. ) Cardiovascular: Regular Rate and Rhythm Respiratory: Clear to Auscultation GI: Abd Soft and Non-Tender Extremities: Warm, Perfused Integumentary: Skin Intact without Lesion / Mass Psych: Alert & Oriented X3, Appropriate Mood & Affect Medical Decision Making Data Points Result Diagram: 12/27/18 1210 12/27/18 1210 EKG / Imaging Imaging FACILITY: [facility] [place] PATIENT NAME: Scot Richardson : 1990 MR: [id number] V: [id number] EXAM DATE: ORDERING PHYSICIAN: JULIA GONZALES TECHNOLOGIST: [place] [facility] [place] Patient: Scot Richardson : 1990 Visit/Account:[id number] Date of Sevice: 12/27/2018 EXAMINATION: CT neck with IV contrast HISTORY: Recurrent tonsillar swelling. Drooling. TECHNIQUE: Axial CT images of the neck were obtained with IV contrast, with coronal and sagittal 2D reconstructed images. One of the following dose optimization techniques was utilized in the performance of this exam: Automated exposure control; adjustment of the mA and/or kV according to the patient's size; or use of an iterative tra nstruction technique. Specific details can be referenced in the facility's radiology CT exam operational policy. Contrast: 75 mL of IV Isovue-370. COMPARISON: None. FINDINGS: There is moderate enlargement of the bilateral palatine tonsils, greater on the left, which results in moderate narrowing of the oropharynx. There is mildly heterogeneous enhancement of the left palatine tonsil without evidence of any well-defined abscess. There is some edema tracking along the left parapharyngeal space which may indicate peritonsillar cellulitis/phlegmon, but again with no discrete well-defined abscess at this time. Additional moderate symmetric enlargement of the bilateral adenoids. The hypopharynx is patent and normal in caliber. Normal CT appearance of the epiglottis. No retropharyngeal abscess or fluid. No soft tissue gas along the neck. Mildly enlarged cervical lymph nodes along the neck are likely reactive. Largest nodes measure 1.8 x 1.5 cm along the left level II neck and 1.9 x 1.4 cm along the right level II neck. The parotid and submandibular glands are unremarkable. Normal CT appearance of the thyroid. The visualized lung apices are clear. Visualized osseous structures appear intact. Normal alignment along the cervical spine. The partially visualized paranasal sinuses are unopacified. The mastoid air cells and middle ear cavities are unopacified. IMPRESSION: 1. Moderate enlargement of the bilateral palatine tonsils, greater on the left, with moderate narrowing of the oropharynx. 2. There is mildly heterogeneous enhancement of the left palatine tonsil without evidence of a discrete abscess. 3. Edema along the left parapharyngeal space may represent peritonsillar cellulitis/phlegmon, but again without any discrete abscess at this time. 4. Additional moderate enlargement of the bilateral adenoids. 5. Mildly enlarged bilateral cervical lymph nodes are likely reactive. Report Dictated By: Prakash Hyde MD at 12/27/2018 3:12 PM Report E-Signed By: Prakash Hyde MD at 12/27/2018 3:24 PM [id number] Pre-Admit Course ED Medications Dexamethasone, ceftriaxone. Medical Record Review: Yes Assessment and Plan Problems: (1) Peritonsillar cellulitis Status: Acute Assessment & Plan: Will admit and hydrate. Unasyn started. Will continue dexamethasone 10mg q 8 hrs for a total of [address] Prakash Hyde. He will see the patient in the am. Continuous pulse ox. Monitor for signs of airway compromise. (2) Dehydration Status: Acute Assessment & Plan: The patient has not had significant oral intake in 36 hours. Will start IV fluids. Time Spent on Plan of Care: < 30 min Venous Thromboembolism Antithrombotics Is Pt On Any Antithrombotics?: No Prophylaxis Tx Contraindicated Pharmacological Contraindicati: Pt at Low Risk for VTE Mechanical Contraindications: Pt at Low Risk for VTE Exam Sepsis Risk: No Definite Risk DOUGLAS GARY MD December 27, 2018 17:59
[2018-12-27 19:00] VITALS: BP 155/95
[2018-12-27] MEDS: DEXAMETHASONE SOD PHOS 10MG/ML IVP SCH (19:40)
[2018-12-27] MEDS: IBUPROFEN 800 MG TAB PO SCH (23:33)
[2018-12-27 23:43] VITALS: BP 130/94
[2018-12-28] MEDS: DEXAMETHASONE SOD PHOS 10MG/ML IVP SCH (04:36)
[2018-12-28 04:37] VITALS: BP 115/60
[2018-12-28] MEDS: AMPICILLIN/SULBACT (*) 3 GM VL 3 GM in NS(*) 0.9% 100 ML MINI-BAG 100 ML IVPB SCH (06:03)
[2018-12-28] MEDS: IBUPROFEN 800 MG TAB PO SCH (06:23)
[2018-12-28 06:37] VITALS: BP 133/79
[2018-12-28] MEDS ORDERED: AMOX-559 PO (09:01)
--- NOTE | 2018-12-28 09:05 | Hospitalist Depart ---
Discharge Summary Reason for Hosp/Final Diag: (1) Peritonsillar cellulitis Status: Acute Hospital Course & Plan: He was placed on Unasyn. He was given dexamethasone 10mg q 8 hrs for a total of [address] Prakash Hyde. He recommended Augmentin for one week and follow up with Edie HANEY in one week. He has now been able to eat and drink without difficulty. (2) Dehydration Status: Acute Hospital Course & Plan: Upon admission, he did not have significant oral intake in 36 hours. He was given IV fluids. Departure Latest Vital Signs Vital Signs 12/28/18 12/28/18 12/28/18 04:37 06:37 07:09 Temp 97.7 Pulse 45 Resp 16 B/P (MAP) 133/79 (97) Pulse Ox 95 O2 Delivery Room Air Weight (Pounds): 225 Result Diagram: 12/27/18 1210 12/27/18 1210 Condition: Improved Discharge: Home, Self Care Discharge Instructions Home Meds Active Scripts Amoxicillin/Pot Clav 875-125 Mg Tab (AUGMENTIN 875-125 TABLET) 1 Each Tablet, 1 TAB PO Q12H for 7 Days, #14 TAB Prov:HYACINTH TROTTER PROGRAM MANAGEMENT SPECIALIST 12/28/18 Discontinued Scripts Cephalexin 500 Mg Tab (KEFLEX 500 MG TAB) 500 Mg Tablet, 500 MG PO Q6H, #28 TAB Prov:HENRRY DUQUE PROGRAM MANAGEMENT SPECIALIST 12/15/18 Diet: Regular Activity: As Tolerated Special Instructions: Take Augmentin for one week. Follow up with Edie HANEY in one week. Increase hydration. Return to ER if difficulty swallowing. Copies to: EDIE BRISENO PA-C ; Venous Thromboembolism Antithrombotics Is Pt On Any Antithrombotics?: No HYACINTH TROTTERP December 28, 2018 09:05
--- NOTE | 2018-12-28 11:40 | CONSULTATION ---
EVENT DATE: December 28, 2018 REQUESTING PHYSICIAN Brenda Matias MD REASON FOR CONSULTATION Possible peritonsillar abscess. HISTORY OF PRESENT ILLNESS This is a 28-year old man who is otherwise healthy who presented to the emergency department initially with sore throat and difficulty swallowing and breathing for two days. The patient was seen in the ER earlier this month with pharyngitis. He was treated with a course of Keflex and reported transient improvement only. In the emergency department, CT of the neck was performed, which was notable for left greater than right peritonsillar edema. No discrete abscess was noted. The patient has no history of peritonsillar abscess. He denies any history of recurrent tonsillitis or strep pharyngitis. He denies tobacco use. The patient was started on Unasyn and Decadron. The patient feels much better this morning and is able to tolerate p.o. PAST MEDICAL HISTORY None. PAST SURGICAL HISTORY None. ALLERGIES No known drug allergies. FAMILY HISTORY Noncontributory. SOCIAL HISTORY As above, he drinks alcohol on occasion. REVIEW OF SYSTEMS As above. PHYSICAL EXAMINATION VITAL SIGNS: Temperature 97.7 Fahrenheit, pulse 45, respiratory rate 16, blood pressure 133/79, pulse oximetry 95% on room air. GENERAL: Well-nourished, well-developed, no apparent distress. Tolerating oral secretions. HEAD AND FACE: Normocephalic, atraumatic. No gross lesions or scars. Eyes: Extraocular movements intact. Sclerae white. Conjunctivae pink. Ears: External ears unremarkable. Nose: External nose unremarkable. Oral cavity and pharynx: No trismus. Adequate dentition. Moist mucous membranes. 3+ tonsils with exudate. No peritonsillar fullness or soft palate asymmetry. NECK: Soft, supple. Midline trachea. No palpable lymphadenopathy. ASSESSMENT Left peritonsillar cellulitis. PLAN The patient seems to have improved on the IV Unasyn and Decadron. At this juncture, I think we can sent him home on Augmentin 875 mg p.o. b.i.d. for ten days. I will see the patient back in the office on Friday to observe for clinical improvement. If he should have worsening symptoms, he is to call the office or present again to the emergency departments. These plans were discussed with the hospitalist service. Please call me with any questions or concerns. [email or web address]
== END 2018-12-28 09:02 | disposition home or self-care (01) ==
LOC: ER 12:02 → MED 16:07
PROVIDERS: ADMIT Internal Medicine; ATTEND Internal Medicine
DX: J36 Peritonsillar abscess (principal); E86.0 Dehydration
CPT/HCPCS: 36415; 70491; 83605; 85025; 87040; 96360; 99284; G0378; J0295; J0696; J1100; J7030; Q9967; 82040; 82247; 82310; 82374; 82435; 82565; 82947; 84075; 84132; 84155; 84295; 84450; 84460; 84520